=== PATIENT | male | born 1970 | race Caucasian/White ===

== ENCOUNTER 2022-04-07 11:48 | Emergency (ER) | payer OTHER, SELFPAY ==
[2022-04-07] VITALS (16 sets, daily range): BP systolic 93–130; BP diastolic 72–92; PULSE 57–71; RESP 16–22; TEMP 36.5; O2SAT 95–100; BMI 23.7
--- NOTE | 2022-04-07 12:08 | ED_ITS ---
HPI - General Adult General Time Seen by Provider: 12:08 Date Seen: 04/07/22 Chief complaint: Chest Pain Stated complaint: Chest pain, shortness of breath Time Seen by Provider: 04/07/22 12:08 Source: patient and RN notes reviewed Mode of arrival: ambulatory Limitations: no limitations History of Present Illness HPI narrative: Jayant is a very pleasant 51-year-old gentleman with history of tobacco use and recent COVID infection 3 weeks ago who comes to the emergency room for evaluation of chest pain. Patient states that he initially experienced the onset of a runny nose the day after ThanksgiMarch 20. Three days later he tested positive and had taken the test because he is feeling a bit worse. He describes his COVID is feeling tired with congestion. He states he slept never really had a fever and overall was not that bad. He does state that he has had all of the COVID shots. He notes that he had his 1st negative test approximately 6 days ago. He notes however that while he was sick he was experiencing some chest discomfort mainly in the left lower anterior chest associated with some mild shortness of breath. He states that he has worsening pain when he tries to exhale and can even bring it on. He notes that is unfortunately getting worse. He notes no significant sputum production. He has not had a fever. 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 He states he has to stop frequently. He also notes some mild numbness in his fingers and his to es occasionally. Today it is in his fingertips on both sides. He has no personal history of DVT. He is currently in the [place] area cuts his mom is dying of esophageal cancer. She is at home on hospice. This is obviously a great stressor on him at this time. Related Data Home Medications Medication Instructions Recorded Confirmed No Known Home Medications 04/07/22 04/07/22 Allergies Allergy/AdvReac Type Severity Reaction Status Date / Time No Known Drug Allergies Allergy Verified 04/07/22 11:54 Review of Systems Status of ROS: Reports: 10 or more systems reviewed and unremarkable except as noted in History and below Const: Denies: fever, chills or fatigue Eyes: Denies: change in vision ENMT: Denies: throat pain, neck pain or difficulty swallowing Cardio: Reports: chest pain and shortness of breath with exertion; Denies: palpitations, swelling of feet/ankles or lightheadedness Resp: Reports: shortness of breath, cough and wheezing GI: Denies: abdominal pain, nausea, vomiting, diarrhea or difficulty swallowing Musculo: Denies: neck pain Integ/Breast: Denies: rash Neuro: Reports: numbness in extremities; Denies: weakness in extremities Psych: Reports: anxiety (Sadness ) Endo: Denies: fatigue Allergy/Immuno: Reports: wheezing PFSH PFSH Social History Smoking Status: Current every day smoker What tobacco products do you use: cigarettes Smoking packs per day: 1 Smoking cigarettes per day: 20.0 Years smoked: 35 Smoking pack-years: 35.00 Do you use any of these nicotine containing products: None Second hand tobacco smoke exposure: No How often do you have a drink containing alcohol: 2-4 times a month How many standard drinks containing alcohol do you have on a typical day: 1 or 2 How often do you have six or more drinks on one occasion: Never AUDIT-C Alcohol total score: 2 Non-prescribed substance use: denies use service: No Exam Narrative: Exam Narrative: Jayant is alert and oriented. He is somewhat anxious. Very well-spoken kind gentleman. EOM is full. Oral cavity moist mucous membranes and no exudate posterior oropharynx. Neck is supple without lymphadenopathy. Heart with regular rate and rhythm without murmur or rub. Lungs are clear bilaterally. Abdomen soft nontender. Lower extremities without edema. No calf tenderness. Pedal pulses are intact. Const: Vital Signs, click to edit/add: Vital Signs - 24 hr 04/07/22 11:55 04/07/22 12:18 04/07/22 12:32 Temperature 97.7 F Pulse Rate Pulse Rate [Pulse Oximeter] 71 Respiratory Rate 22 Blood Pressure 128/92 H 117/84 Blood Pressure [Ri ght Upper Arm] 130/81 Pulse Oximetry 100 Oxygen Delivery Me thod Room Air 04/07/22 12:33 04/07/22 13:00 04/07/22 13:01 Temperature Pulse Rate 68 61 68 Pulse Rate [Pulse Oximeter] Respiratory Rate Blood Pressure 128/91 H Blood Pressure [Ri ght Upper Arm] Pulse Oximetry 97 99 96 Oxygen Delivery Me thod 04/07/22 13:02 04/07/22 13:30 04/07/22 13:32 Temperature Pulse Rate 61 66 69 Pulse Rate [Pulse Oximeter] Respiratory Rate Blood Pressure 112/75 Blood Pressure [Ri ght Upper Arm] Pulse Oximetry 98 95 98 Oxygen Delivery Me thod 04/07/22 13:33 04/07/22 14:00 04/07/22 14:02 Temperature Pulse Rate 66 62 62 Pulse Rate [Pulse Oximeter] Respiratory Rate Blood Pressure 93/72 Blood Pressure [Ri ght Upper Arm] Pulse Oximetry 97 96 98 [facility] has reviewed patient's vital signs: yes Course Course Hospital Course: Differential diagnosis includes but is not limited to acute coronary syndrome, PE, pneumonia, costochondritis, musculoskeletal cause, anxiety, esophagitis, esophageal spasm. An IV will be placed in patient will be given aspirin 324 mg p.o.. Will check EKG, troponin, CBC, comprehensive panel, D-dimer, CRP, two view chest x-ray. Plan on repeat EKG and troponin in approximately 90 minutes if reassuring 1st test. Also discussed with patient the use of Toradol if initial troponin is negative. Reevaluation(s) Reevaluation #1: Patient noted to be very relieved that EKG is reassuring and troponin is negative. He is aware that we will be doing a 2nd check in approximately 90 minutes time. He is receptive to Toradol at this time. Reevaluation #2: Patient noted to be much improved after Toradol. I did discuss with him results today which include reassuring EKGs and 2 sets of negative cardiac enzymes as well as a normal D-dimer and chest x-ray. Reevaluation #3: Second EKG and 2nd cardiac enzyme reassuring. Vital Signs Vital signs: Initial Vital Signs Temperature 97.7 F 04/07/22 11:55 Temperature Source Temporal Artery Scan 04/07/22 11:55 Pulse Rate 71 04/07/22 11:55 Pulse Rhythm 04/07/22 11:55 Respiratory Rate 22 04/07/22 11:55 Blood Pressure 130/81 04/07/22 11:55 Blood Pressure Mean 97 04/07/22 11:55 Blood Pressure Position Sitting 04/07/22 11:55 Pulse Oximetry 100 04/07/22 11:55 Oxygen Delivery Method 04/07/22 11:55 Vital Signs Temperature 97.7 F 04/07/22 11:55 Pulse Rate 71 04/07/22 11:55 Respiratory Rate 22 04/07/22 11:55 Blood Pressure 130/81 04/07/22 11:55 Pulse Oximetry 100 04/07/22 11:55 Oxygen Delivery Method 04/07/22 11:55 Temperature 97.7 F 04/07/22 11:55 Pulse Rate 62 04/07/22 14:02 Respiratory Rate 22 04/07/22 11:55 Blood Pressure 93/72 04/07/22 14:02 Pulse Oximetry 98 04/07/22 14:02 Oxygen Delivery Method 04/07/22 11:55 Medical Decision Making MDM Narrative Medical decision making narrative: 1. Atypical chest pain-patient has 2 sets of negative cardiac enzymes as well as 2 reassuring EKGs. 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 D-dimer is also reassuring, patient has no lower extremity edema, history of DVT, hypoxia or tachycardia to indicate need for further assessment of PE. At this time he is much improved after Toradol. Suspect that this is a combination of musculoskeletal discomfort from weeks of coughing as well as the additional stress of losing his mother. Recommend continuing NSAID in the form of ibuprofen 600 mg every 8 hours as needed. 2. Anxiety/stress-patient noted to be under considerable stress and currently his mother os on hospice. Will give him a small amount of Ativan 0.5 mg to be used 1-2 tabs every 8 hours as needed, 10. Via instant meds. Recommend not using this medication with alcohol or while driving. Did ask in regards to past medical history for addiction and he denies. 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 2. Disposition-home at this time. Patient instructed to return for onset of new or worsening symptoms. Lab Data Lab results reviewed: Yes I reviewed the patient's lab results Labs: Lab Results 04/07/22 04/07/22 04/07/22 Range/Units 12:23 12:30 12:30 WBC 7.47 (4.50-11.00) K/uL RBC 4.97 (4.30-5.90) m/uL Hgb 16.4 (13.5-17.5) gm/dL Hct 46.7 (37.0-53.0) % MCV 94 (80-100) fL MCH 33 (26-34) pg MCHC 35 (32-36) gm/dL RDW Coeff of Leonel 12.0 (11.5-15.5) % Plt Count 215 (140-440) K/uL Neut % (Auto) 67.3 (42.0-72.0) % Lymph % (Auto) 25.6 (20-44) % [place] % (Auto) 5.1 (0.0-11.0) % Eos % (Auto) 1.3 (0.0-7.0) % Baso % (Auto) 0.7 (0.0-3.0) % Neut # (Auto) 5.03 (1.7-7.0) K/uL Lymph # (Auto) 1.91 (0.90-2.90) K/uL [place] # (Auto) 0.40 (0.00-0.90) K/UL Eos # (Auto) 0.10 (0.00-0.50) K/uL Baso # (Auto) 0.05 (0.00-0.30) K/uL Abs Immat Gran (auto) 0.00 (0.00-0.30) K/uL Imm/Tot Granulo (auto) 0.0 % D-Dimer Quant (PE/DVT) < 0.27 (0.00-0.50) ug/ml Sodium (135-149) mmol/L Potassium (3.6-5.1) mmol/L Chloride (96-114) mmol/L Carbon Dioxide (20-32) mmol/L BUN (7-30) mg/dL Creatinine (0.5-1.5) mg/dL Estimated Creat Clear Estimated GFR ml/min Glucose (60-115) mg/dL Calcium (8.4-10.6) mg/dL Total Bilirubin (0.1-1.5) mg/dL AST (12-35) U/L ALT (4-50) U/L Alkaline Phosphatase (40-150) U/L C-Reactive Protein (0.5-1.0) mg/dL Total Protein (6.0-8.3) g/dL Albumin (3.3-5.0) g/dL POC Troponin I 0.00 L (0.01-0.04) ng/ml 04/07/22 04/07/22 Range/Units 12:30 14:00 WBC (4.50-11.00) K/uL RBC (4.30-5.90) m/uL Hgb (13.5-17.5) gm/dL Hct (37.0-53.0) % MCV (80-100) fL MCH (26-34) pg MCHC (32-36) gm/dL RDW Coeff of Leonel (11.5-15.5) % Plt Count (140-440) K/uL Neut % (Auto) (42.0-72.0) % Lymph % (Auto) (20-44) % [place] % (Auto) (0.0-11.0) % Eos % (Auto) (0.0-7.0) % Baso % (Auto) (0.0-3.0) % Neut # (Auto) (1.7-7.0) K/uL Lymph # (Auto) (0.90-2.90) K/uL [place] # (Auto) (0.00-0.90) K/UL Eos # (Auto) (0.00-0.50) K/uL Baso # (Auto) (0.00-0.30) K/uL Abs Immat Gran (auto) (0.00-0.30) K/uL Imm/Tot Granulo (auto) % D-Dimer Quant (PE/DVT) (0.00-0.50) ug/ml Sodium 139 (135-149) mmol/L Potassium 3.9 (3.6-5.1) mmol/L Chloride 107 (96-114) mmol/L Carbon Dioxide 25 (20-32) mmol/L BUN 14 (7-30) mg/dL Creatinine 0.9 (0.5-1.5) mg/dL Estimated Creat Clear 104.58 Estimated GFR 104 ml/min Glucose 96 (60-115) mg/dL Calcium 9.9 (8.4-10.6) mg/dL Total Bilirubin 0.8 (0.1-1.5) mg/dL AST 31 (12-35) U/L ALT 31 (4-50) U/L Alkaline Phosphatase 94 (40-150) U/L C-Reactive Protein < 0.5 L (0.5-1.0) mg/dL Total Protein 7.2 (6.0-8.3) g/dL Albumin 4.7 (3.3-5.0) g/dL POC Troponin I 0.00 L (0.01-0.04) ng/ml Imaging Data Chest x-ray: Attestation: I have reviewed the pertinent imaging results. My impression: I do not note any acute findings on x-ray. Radiologist's impression: Cardiovascular and mediastinum:? Heart size and vasculature are normal in caliber and appearance.? Lungs and pleural spaces:? Lungs are clear.? No sign of infiltrate or mass. ?No sign of pleural effusion.? No pneumothorax.? Bones and soft tissues:? No significant findings. IMPRESSION: Negative chest. ECG Data Attestation: I personally reviewed and interpreted this ECG as follows: Interpretation: By my read EKG shows sinus rhythm at a rate of 64. I do not note any acute ST or T-wave changes. QT corrected normal at 398. Second EKG by my read shows sinus bradycardia at a rate of [address] or T-wave changes. Discharge Plan Discharge Clinical Impression: Atypical chest pain Patient Disposition: Home, Self-Care Condition: Improved Additional Instructions: Suggest use of ibuprofen 600 mg every 8 hours as needed for chest discomfort. Take with food. For ongoing or new symptoms please return to the ER for evaluation. Sympathy use on what you are going through with your mom right now. If needed you may use Ativan sparingly to help anxiety. Please do not use alcohol or drive if using Ativan. Ativan will be given through instant meds. Return as needed. Prescriptions: No Action No Known Home Medications Stand Alone Forms: [employer] Info Instructions
--- NOTE | 2022-04-07 12:23 | CRLHL7_ITS ---
For Patients: As a result of the Century Cures Act, medical imaging exams and procedure reports are released immediately into your electronic medical record. You may view this report before your referring provider. If you have questions, please contact your health care provider. INDICATION: Post COVID chest pain. TECHNIQUE: Chest 2 views. COMPARISON: None. FINDINGS: Cardiovascular and mediastinum: Heart size and vasculature are normal in caliber and appearance. Lungs and pleural spaces: Lungs are clear. No sign of infiltrate or mass. No sign of pleural effusion. No pneumothorax. Bones and soft tissues: No significant findings. IMPRESSION: Negative chest. Dictated by Juan Carlos Lopez MD @ 04/07/2022 1:06:35 PM (Electronically Signed)
[2022-04-07] MEDS: ASPIRIN 81 MG TAB.CHEW 324 MG PO (12:31)
[2022-04-07 12:45] LABS: Basophils Absolute Auto 0.05 K/uL (0.00-0.30); Basophils Percent Auto 0.7 % (0.0-3.0); Eosinophils Percent Auto 1.3 % (0.0-7.0); Hematocrit 46.7 % (37.0-53.0); Hemoglobin* 16.4 gm/dL (13.5-17.5); Lymphocytes Absolute Auto 1.91 K/uL (0.90-2.90); Lymphocytes Percent Auto 25.6 % (20-44); Mean Corpuscular HGB Conc 35 gm/dL (32-36); Mean Corpuscular Hemoglobin 33 pg (26-34); Mean Corpuscular Volume 94 fL (80-100); Monocytes Percent Auto 5.1 % (0.0-11.0); Neutrophils Absolute Auto 5.03 K/uL (1.7-7.0); Neutrophils Percent Auto 67.3 % (42.0-72.0); Platelet Count* 215 K/uL (140-440); Red Blood Count 4.97 m/uL (4.30-5.90); White Blood Count* 7.47 K/uL (4.50-11.00)
[2022-04-07 12:46] LABS: Slide Review Reflex No
[2022-04-07] MEDS: KETOROLAC 15 MG/ML inj IVP (12:55)
[2022-04-07 13:00] LABS: Albumin* 4.7 g/dL (3.3-5.0); Chloride* 107 mmol/L (96-114)
[2022-04-07 13:01] LABS: Potassium* 3.9 mmol/L (3.6-5.1); Sodium* 139 mmol/L (135-149)
[2022-04-07 13:03] LABS: Bilirubin Total* 0.8 mg/dL (0.1-1.5); Creatinine* 0.9 mg/dL (0.5-1.5); Est. Creatinine Clearance* 104.58; Estimated Glomerular Filt Rate 104 ml/min
[2022-04-07 13:04] LABS: Alanine Aminotransferase* 31 U/L (4-50); Alkaline Phosphatase* 94 U/L (40-150); Aspartate Amino Transferase* 31 U/L (12-35); Blood Urea Nitrogen* 14 mg/dL (7-30); Calcium* 9.9 mg/dL (8.4-10.6); Carbon Dioxide* 25 mmol/L (20-32); Glucose* 96 mg/dL (60-115); Total Protein* 7.2 g/dL (6.0-8.3)
[2022-04-07 13:09] LABS: C Reactive Protein* < 0.5 mg/dL (0.5-1.0)
[2022-04-07 13:13] LABS: D Dimer Quantitative* < 0.27 ug/ml (0.00-0.50)
== END 2022-04-07 14:41 | disposition home or self-care (01) ==
PROVIDERS: Emergency Provider Family Medicine
DX: R07.89 Other chest pain (principal); Z73.3 Stress, not elsewhere classified
CPT/HCPCS: 36415; 71046; 80053; 84484; 85025; 85379; 86140; 93005; 96374; 99284; 99285; A9270; J1885